=== PATIENT | male | born 1955 | race Hispanic/Latino ===

== ENCOUNTER 2018-04-30 21:13 | Emergency (ER) | payer MEDICARE ==
[2018-04-30] MEDS ORDERED: ZOFRAN IV ONE (21:39)
[2018-04-30] MEDS ORDERED: SUBLIMAZE IV ONE (21:39)
--- NOTE | 2018-04-30 21:43 | Emergency Department Report ---
HPI - General Chief Complaint: Abdominal Pain Time Seen by Provider: 04/30/18 21:27 - HPI HPI: The patient is a 62-year-old male with a history of chronic hepatitis C, and whom presents for evaluation of abdominal pain. The patient reports 1 month of on and off cramping abdominal pain, moderate in severity, exacerbated with dry heaving, and associated with nausea and multiple episodes of nonbilious, nonbloody emesis and dry heaving. He states he had a bowel movement last night and is able to pass flatus. The patient denies fever, chills, night sweats, diarrhea, blood in the stool, dark tarry stool, dysuria, hematuria, flank pain, genital discharge, inability to pass flatus. ED Past Medical Hx - Past Medical History Hx Hypertension: Yes Hx Heart Attack/AMI: Yes Additional medical history: Anxiety - Surgical History Additional Surgical History: c5-c7 fusion and repair l. eye - Social History Smoking Status: Current Every Day Smoker - Medications Home Medications: Home Medications Medication Instructions Recorded Confirmed Last Taken Type Duloxetine HCl [Cymbalta] 60 mg PO DAILY 06/17/15 06/17/15 06/17/15 History Lisinopril [Zestril TAB] 20 mg PO QDAY 06/17/15 06/17/15 06/17/15 History amLODIPine [Norvasc] 5 mg PO DAILY 06/17/15 06/17/15 06/17/15 History cloNIDine [Catapres] 0.1 mg PO QHS 06/17/15 06/17/15 06/16/15 History traZODone [Desyrel] 100 mg PO QHS 06/17/15 06/17/15 06/16/15 History Dicyclomine [Bentyl] 10 mg PO QID #20 capsule 05/01/18 Unknown Rx Omeprazole Magnesium [PriLOSEC Otc] 20 mg PO QDAY #14 tablet. 05/01/18 Unknown Rx Ondansetron [Zofran TAB] 4 mg PO Q8HR PRN #20 tablet 05/01/18 Unknown Rx ED Review of Systems ROS: Stated complaint: ABD PAIN Other details as noted in HPI Constitutional: denies: fever ENT: denies: throat or neck pain Respiratory: denies: cough, shortness of breath Cardiovascular: denies: chest pain Endocrine: denies unexplained weight loss or gain Gastrointestinal: reports abdominal pain, nausea Genitourinary: denies: dysuria Musculoskeletal: denies: leg swelling Skin: denies: rash Neurological: denies: headache Hematological/Lymphatic: denies: easy bleeding or easy bruising Psych: denies sadness or hopelessness Physical Exam - Physical Exam Physical Exam: General: well-nourished, well-developed, no acute distress Head: Normocephalic, atraumatic Eyes: normal sclera ENT: Mucous membranes are pink and moist Neck: trachea midline, neck supple, No neck stiffness, no cervical adenopathy Respiratory: Breath sounds equal bilaterally, no wheezing, rales, or rhonchi Cardio: S1 and S2 present, no murmurs, rubs, gallops, capillary refill is brisk Abdomen: Normoactive bowel sounds, soft abdomen, epigastric tenderness to palpation present, no rigidity, no guarding or rebound tenderness Chest WALL/Back: No tenderness to palpation of the chest wall, no CVA tenderness with percussion Musc: No pitting edema Skin: No rash Neuro: no facial drooping, normal speech Psych: Normal affect ED Medical Decision Making - Lab Data Result diagrams: 04/30/18 22:12 04/30/18 22:12 - Medical Decision Making The patient was seen and examined by myself. The patient is placed on a teletypesetter monitor and continuous pulse ox. On initial evaluation, the patient was found to be in no distress. Evaluation orders are placed. IV access is established and the patient is given 1 L normal saline fluid bolus and Zofran for nausea, and IV analgesic for pain Lab results were non-concerning including WBC, hemoglobin, hematocrit, electrolytes, renal function, LFTs, lipase, and urinalysis. The patient was reevaluated and reported that their symptoms were markedly improved. The patient is stable for discharge with outpatient follow-up. The patient is given follow-up and return instructions. The patient expressed understanding and agreed with the plan. The patient is discharged in stable condition. Critical care attestation.: If time is entered above; I have spent that time in minutes in the direct care of this critically ill patient, excluding procedure time. ED Disposition Clinical Impression: Acute generalized abdominal pain Disposition: TO HOME OR SELFCARE Is pt being admited?: No Does the pt Need Aspirin: No Condition: Stable Instructions: Acute Abdominal Pain (ED) Referrals: NICOLE PERES MD [Primary Care Provider] - 3-5 Days TOSHA GARCÍA MD [Staff Physician] - 3-5 Days Time of Disposition: 21:43
[2018-04-30 23:07] LABS: Hemoglobin 12.8 gm/dl (11.8-15.2); Mean Corpuscular HGB Conc 34 % (32-34); Mean Corpuscular Hemoglobin 33 pg (28-32); Mean Corpuscular Volume 98 fl (84-94); Platelet Count 108 K/mm3 (140-440); Red Blood Count 3.86 M/mm3 (3.65-5.03); Red Cell Distribution Width 13.2 % (13.2-15.2)
[2018-04-30 23:47] LABS: Alanine Aminotransferase 39 units/L (7-56); Albumin 3.9 g/dL (3.9-5); BUN/Creatinine Ratio 14; Blood Urea Nitrogen 10 mg/dL (9-20); Calcium 8.6 mg/dL (8.4-10.2); Hemolysis Index 6; Lipase 59 units/L (13-60)
[2018-05-01 00:01] VITALS: BP 113/83
[2018-05-01 00:30] LABS: Bilirubin,Urine NEG (Negative); Blood,Urine NEG (Negative); Calcium Oxalate Crystals,Urine FEW; Color,Urine Yellow (Yellow); Protein,Urine <15 mg/dL mg/dL (Negative); Urobilinogen,Urine < 2.0 mg/dL (<2.0)
[2018-05-01 00:39] LABS: Band Neutrophils # (Manual) 0.1 K/mm3; Basophils % (Manual) 0 % (0.0-1.8); Total Cells Counted 100
[2018-05-01 00:40] LABS: Platelet Estimate Consistent w Auto; RBC Morphology Normal
== END 2018-05-01 02:25 | disposition home or self-care (01) ==
LOC: ED 21:13
DX: R10.84 Generalized abdominal pain (principal); I11.0 Hypertensive heart disease with heart failure; F41.9 Anxiety disorder, unspecified; F17.200 Nicotine dependence, unspecified, uncomplicated
CPT/HCPCS: 36415; 80053; 81001; 83690; 83880; 85007; 85025; 96374; 96375; 99284; J2405; J3010

== ENCOUNTER 2018-05-17 20:40 | Emergency (ER) | payer MEDICARE ==
[2018-05-17] MEDS ORDERED: NACL 0.9% 1000 ML 1,000 ML IV ONE (21:35)
[2018-05-17 21:50] LABS: Basophils % (Auto) 0.3 % (0.0-1.8); Eosinophils # (Auto) 0.2 K/mm3 (0.0-0.4); Eosinophils % (Auto) 2.8 % (0.0-4.3); Hematocrit 44.5 % (35.5-45.6); Hemoglobin 15.1 gm/dl (11.8-15.2); Lymphocytes # (Auto) 2.6 K/mm3 (1.2-5.4); Lymphocytes % (Auto) 33.6 % (13.4-35.0); Mean Corpuscular HGB Conc 34 % (32-34); Mean Corpuscular Hemoglobin 32 pg (28-32); Mean Corpuscular Volume 96 fl (84-94); Monocytes # (Auto) 0.8 K/mm3 (0.0-0.8); Monocytes % (Auto) 10.2 % (0.0-7.3); Platelet Count 181 K/mm3 (140-440); Red Blood Count 4.66 M/mm3 (3.65-5.03); Red Cell Distribution Width 13.2 % (13.2-15.2)
[2018-05-17 22:19] LABS: Alanine Aminotransferase 32 units/L (7-56); Albumin 3.9 g/dL (3.9-5); BUN/Creatinine Ratio 10; Blood Urea Nitrogen 8 mg/dL (9-20); Calcium 9.6 mg/dL (8.4-10.2); Hemolysis Index 11
--- NOTE | 2018-05-17 23:59 | Emergency Department Report ---
ED Abdominal Pain HPI - General Chief Complaint: Abdominal Pain Stated Complaint: BACK AND HIP PAIN Time Seen by Provider: 05/17/18 22:26 Source: patient Mode of arrival: Ambulatory Limitations: No Limitations - History of Present Illness Initial Comments: 2 weeks of constant bilateral lower abd pain. Nauseous, but no vomiting. No h/ o abd surgeries. Denies urinary complaints. Afebrile. Feels like it might be his pancreatitis. - Related Data Home Medications Medication Instructions Recorded Confirmed Last Taken Duloxetine HCl [Cymbalta] 60 mg PO DAILY 06/17/15 06/17/15 06/17/15 Lisinopril [Zestril TAB] 20 mg PO QDAY 06/17/15 06/17/15 06/17/15 amLODIPine [Norvasc] 5 mg PO DAILY 06/17/15 06/17/15 06/17/15 cloNIDine [Catapres] 0.1 mg PO QHS 06/17/15 06/17/15 06/16/15 traZODone [Desyrel] 100 mg PO QHS 06/17/15 06/17/15 06/16/15 Previous Rx's Medication Instructions Recorded Last Taken Type Dicyclomine [Bentyl] 10 mg PO QID #20 capsule 05/01/18 Unknown Rx Omeprazole Magnesium [PriLOSEC Otc] 20 mg PO QDAY #14 tablet. 05/01/18 Unknown Rx Ondansetron [Zofran TAB] 4 mg PO Q8HR PRN #20 tablet 05/01/18 Unknown Rx Allergies Allergy/AdvReac Type Severity Reaction Status Date / Time No Known Allergies Allergy Verified 04/30/18 22:15 ED Review of Systems ROS: Stated complaint: BACK AND HIP PAIN Other details as noted in HPI Comment: All other systems reviewed and negative Gastrointestinal: abdominal pain, nausea ED Past Medical Hx - Past Medical History Previous Medical History?: Yes Hx Hypertension: Yes Hx Heart Attack/AMI: Yes Additional medical history: Anxiety - Surgical History Past Surgical History?: Yes Additional Surgical History: c5-c7 fusion and repair l. eye - Social History Smoking Status: Current Every Day Smoker Substance Use Type: Alcohol - Medications Home Medications: Home Medications Medication Instructions Recorded Confirmed Last Taken Type Duloxetine HCl [Cymbalta] 60 mg PO DAILY 06/17/15 06/17/15 06/17/15 History Lisinopril [Zestril TAB] 20 mg PO QDAY 06/17/15 06/17/15 06/17/15 History amLODIPine [Norvasc] 5 mg PO DAILY 06/17/15 06/17/15 06/17/15 History cloNIDine [Catapres] 0.1 mg PO QHS 06/17/15 06/17/15 06/16/15 History traZODone [Desyrel] 100 mg PO QHS 06/17/15 06/17/15 06/16/15 History Dicyclomine [Bentyl] 10 mg PO QID #20 capsule 05/01/18 Unknown Rx Omeprazole Magnesium [PriLOSEC Otc] 20 mg PO QDAY #14 tablet. 05/01/18 Unknown Rx Ondansetron [Zofran TAB] 4 mg PO Q8HR PRN #20 tablet 05/01/18 Unknown Rx ED Physical Exam - General Limitations: No Limitations General appearance: in no apparent distress, appears intoxicated - Head Head exam: Present: atraumatic, normocephalic - Eye Eye exam: Present: normal appearance, PERRL, EOMI - ENT ENT exam: Present: mucous membranes moist - Neck Neck exam: Present: normal inspection - Respiratory Respiratory exam: Present: normal lung sounds bilaterally. Absent: respiratory distress - Cardiovascular Cardiovascular Exam: Present: regular rate, normal rhythm. Absent: systolic murmur, diastolic murmur, rubs, gallop - GI/Abdominal GI/Abdominal exam: Present: soft, normal bowel sounds. Absent: distended, tenderness, guarding, rebound - Rectal Rectal exam: Present: deferred - Extremities Exam Extremities exam: Present: normal inspection - Back Exam Back exam: Present: normal inspection - Neurological Exam Neurological exam: Present: altered (intoxicated), oriented X3 - Psychiatric Psychiatric exam: Present: normal affect, normal mood - Skin Skin exam: Present: warm, dry, intact, normal color. Absent: rash ED Course Vital Signs 05/17/18 05/18/18 20:50 02:32 Temperature 97.7 F 98.1 F Pulse Rate 78 76 Respiratory 18 18 Rate Blood Pressure 167/110 Blood Pressure 131/86 [Right] O2 Sat by Pulse 98 99 Oximetry ED Medical Decision Making - Lab Data Result diagrams: 05/17/18 21:38 05/17/18 21:38 - Radiology Data Radiology results: report reviewed - Medical Decision Making 62 yo male with pmhx HTN that p/w abd pain. VS significant for HTN that improved without intervention. Labs and CT are unremarkable for acute pathology. Pt has slept the entire visit in the ER. Hasn't required anything for pain. Pt has urinated multiple times, but has never saved a sample. Low suspicion for acute pathology given benign physical exam. Pt is cleared for dc. - Differential Diagnosis alcohol intoxication, pancreatitis, sbo, uti, diverticulitis, cholecystitis Critical care attestation.: If time is entered above; I have spent that time in minutes in the direct care of this critically ill patient, excluding procedure time. ED Disposition Clinical Impression: Abdominal pain Disposition: DC-01 TO HOME OR SELFCARE Is pt being admited?: No Does the pt Need Aspirin: No Condition: Stable Instructions: Abdominal Pain (ED) Additional Instructions: follow up with your family doctor for further management of your abdominal pain. Referrals: PRIMARY CARE, [Primary Care Provider] - 3-5 Days
--- NOTE | 2018-05-18 00:15 | Cat Scan Report ---
FINAL REPORT PROCEDURE: CT ABDOMEN PELVIS W CON TECHNIQUE: Computerized axial tomography of the abdomen and pelvis was performed after the IV injection of iodinated nonionic contrast. HISTORY: Rt flank abd pain COMPARISON: No prior studies are available for comparison. FINDINGS: Visualized lower thorax: Atelectasis both lower lungs.. Liver: Normal size and attenuation. Spleen: Normal size and attenuation. Gallbladder and biliary system: Normal. Pancreas: Normal. Adrenals: Normal. Kidneys: Normal. GI tract: No evidence of intestinal obstruction. No ileus or enteritis. The cecum, appendix and colon are normal.. Lymph nodes and mesentery: Normal. Vasculature: Normal. Bladder: Normal. Reproductive organs: Normal. Peritoneum: No free fluid. Musculoskeletal structures: Mild degenerative changes of the spine are noted. No acute osseous abnormality.. Other: None. IMPRESSION: There is no evidence of intestinal or urinary tract obstruction. Ileus or enteritis. The appendix is normal. Mild atelectasis both lower lungs.
[2018-05-18 06:49] VITALS: BP 165/84
== END 2018-05-18 06:47 | disposition home or self-care (01) ==
LOC: ED 20:40
DX: R10.31 Right lower quadrant pain (principal); R10.32 Left lower quadrant pain; R11.0 Nausea; I10 Essential (primary) hypertension; I25.2 Old myocardial infarction; F17.200 Nicotine dependence, unspecified, uncomplicated
CPT/HCPCS: 36415; 74177; 80053; 83690; 85025; 99284; G0480; Q9967; 80320

== ENCOUNTER 2018-05-18 07:53 | Emergency (ER) | payer MEDICARE ==
--- NOTE | 2018-05-18 08:36 | Emergency Department Report ---
ED Back Pain/Injury HPI - General Chief Complaint: Back Pain/Injury Stated Complaint: CANT WALK/PAIN Time Seen by Provider: 05/18/18 08:07 Source: patient, family Limitations: No Limitations - History of Present Illness Initial Comments: This is a 62-year-old male presents to emergency room with right lower back pain that radiates down his right leg. He said this is been going on for 2 days. Patient was here on 05/17/2018 which was yesterday and he had a CT scan of the abdomen and pelvis with IV contrast and he said he does not know why they did a CT scan of his abdomen when he complained of back pain. I discussed with him that the CT scan was negative and also shows that his lumbar spine and she said he has arthritis has mild degeneration but there are no fracture or subluxation. He reports that he was discharged home and they did not address his back. He was treated in emergency room by Dr. Mcgrath and sent home with instruction to follow-up and abdominal pain. He had lab work done to include CBC, chemistry and lipase which were all within normal limits. MD Complaint: back pain Onset/Timin -: days(s) Similar Symptoms Previously: Yes Place: home Radiation: buttocks, right leg Severity: severe Severity scale (0 -10): 10 Quality: aching Consistency: constant Improves With: none Worsens With: movement, walking Context: unknown, other (patient reports that he has arthritis in the spine) Associated Symptoms: denies: confusion, weakness, chest pain, numbness, difficulty walking, cough, difficulty urinating, diaphoresis, incontinence, fever/chills, constipation, headaches, abdominal pain, loss of appetite, nausea/ vomiting, rash, seizure, shortness of breath, syncope Treatments Prior to Arrival: NSAIDS - Related Data Home Medications Medication Instructions Recorded Confirmed Last Taken Duloxetine HCl [Cymbalta] 60 mg PO DAILY 06/17/15 06/17/15 06/17/15 Lisinopril [Zestril TAB] 20 mg PO QDAY 06/17/15 06/17/15 06/17/15 amLODIPine [Norvasc] 5 mg PO DAILY 06/17/15 06/17/15 06/17/15 cloNIDine [Catapres] 0.1 mg PO QHS 09/01/15 09/01/15 08/31/15 traZODone [Desyrel] 100 mg PO QHS 06/17/15 06/17/15 06/16/15 Previous Rx's Medication Instructions Recorded Last Taken Type Dicyclomine [Bentyl] 10 mg PO QID #20 capsule 05/01/18 Unknown Rx Omeprazole Magnesium [PriLOSEC Otc] 20 mg PO QDAY #14 tablet. 05/01/18 Unknown Rx Ondansetron [Zofran TAB] 4 mg PO Q8HR PRN #20 tablet 05/01/18 Unknown Rx Ibuprofen [Motrin] 600 mg PO Q8H PRN #12 tablet 05/18/18 Unknown Rx traMADol [Ultram 50 MG tab] 50 mg PO Q6HR PRN #20 tablet 05/18/18 Unknown Rx Allergies Allergy/AdvReac Type Severity Reaction Status Date / Time No Known Allergies Allergy Verified 04/30/18 22:15 ED Review of Systems ROS: Stated complaint: CANT WALK/PAIN Other details as noted in HPI Constitutional: denies: chills, fever Eyes: denies: eye pain, eye discharge, vision change ENT: denies: ear pain, throat pain Respiratory: denies: cough, shortness of breath, SOB with exertion, SOB at rest , stridor, wheezing Cardiovascular: denies: chest pain, palpitations, edema, syncope Gastrointestinal: denies: abdominal pain, nausea, vomiting, diarrhea, constipation Genitourinary: denies: urgency, dysuria Musculoskeletal: back pain, arthralgia. denies: joint swelling Skin: denies: rash, lesions Neurological: denies: headache, weakness, paresthesias ED Past Medical Hx - Past Medical History Medical history: arthritis, hypertension Anxiety. Chronic lower back pain. Hepatitis C Surgical history: other (fusion of C5 to C7.) Psychiatric history: anxiety Family history: hypertension - Social History Smoking Status: Former Smoker Alcohol use: none Drug use: none ED Back Pain Physical Exam - Exam General: Vital signs noted. No distress. Alert and acting appropriately. This is a 62-year-old male who reports lower back pain without radiation to his right lower extremity. Patient is alert and oriented. Well-nourished well- developed in no acute distress. Back/Abdomen: No Abdominal Tenderness (NTTP), No Perithoracic Tenderness, No Perilumbar Tenderness, No Sacroiliac Tenderness, No Flank Tenderness, No Straight Leg Raise Pain Neuro: Yes Normal Sensation (he has good color, sensation, movement and temperatures to her extremities.), Yes Motor Weakness (strength in all extremities), Yes Normal DTR's (+2 reflexes), Yes Normal Gait (ambulates without any difficulties) ED Course Vital Signs 05/18/18 08:02 Temperature 98 F Pulse Rate 88 Respiratory 18 Rate Blood Pressure 172/100 O2 Sat by Pulse 99 Oximetry Vital Signs 05/18/18 05/18/18 05/18/18 08:02 09:29 09:30 Temperature 98 F Pulse Rate 88 Respiratory 18 20 20 Rate Blood Pressure 172/100 Blood Pressure [Left] O2 Sat by Pulse 99 Oximetry 05/18/18 10:01 Temperature Pulse Rate Respiratory Rate Blood Pressure Blood Pressure 164/90 [Left] O2 Sat by Pulse Oximetry - Reevaluation(s) Reevaluation #1: 05/18/18 10:02 Patient received [place] 2 tablets in the emergency room along with Toradol 30 mg IM and Decadron 10 mg IM which relieved his pain down to 2 out of 10. Ed Back Pain Tests - Tests Tests: Abnormal X Rays (CT scan of the abdomen and pelvis with IV contrast which is then yesterday when he was here showed that he has degenerative disc disease in his spine otherwise normal) ED Medical Decision Making - Lab Data Patient has CBC, CMP and lipase and troponin done which were all stable. He was seen by attending physician 05/17/2018 and was diagnosed with abdominal pain. - Radiology Data Radiology results: report reviewed CT scan of the abdomen and pelvis with IV contrast was done on 05/17/2018 and was dictated by radiologist's report reviewed by myself and patient was no evidence of intestinal or ileus, enteritis. The cecum, appendix and colon are normal. Musculoskeletal structure mild degeneration. Please see detailed report below. Patient: MIKE EARLY MR#: [id number] : 1955 Acct:[id number] Age/Sex: 62 / M ADM Date: 05/17/18 Loc: ED Attending Dr: Ordering Physician: ALEXANDRE MCGRATH MD Date of Service: 05/17/18 Procedure(s): CT abdomen pelvis w con Accession Number(s): [id number] cc: ALEXANDRE MCGRATH MD FINAL REPORT PROCEDURE: CT ABDOMEN PELVIS W CON TECHNIQUE: Computerized axial tomography of the abdomen and pelvis was performed after the IV injection of iodinated nonionic contrast. HISTORY: Rt flank abd pain COMPARISON: No prior studies are available for comparison. FINDINGS: Visualized lower thorax: Atelectasis both lower lungs.. Liver: Normal size and attenuation. Spleen: Normal size and attenuation. Gallbladder and biliary system: Normal. Pancreas: Normal. Adrenals: Normal. Kidneys: Normal. GI tract: No evidence of intestinal obstruction. No ileus or enteritis. The cecum, appendix and colon are normal.. Lymph nodes and mesentery: Normal. Vasculature: Normal. Bladder: Normal. Reproductive organs: Normal. Peritoneum: No free fluid. Musculoskeletal structures: Mild degenerative changes of the spine are noted. No acute osseous abnormality.. Other: None. IMPRESSION: There is no evidence of intestinal or urinary tract obstruction. Ileus or enteritis. The appendix is normal. Mild atelectasis both lower lungs. Transcribed By: [facility] Dictated By: ABY ÁLVAREZ MD Electronically Authenticated By: ABY ÁLVAREZ MD Signed Date/Time: 05/18/187 DD/ TD/TT: 05/18/187 - Medical Decision Making This is a 62-year-old male patient here with lower back pain which is chronic and he is having radiation of pain to his right lower extremity. Patient does not have a primary care physician or orthopedic doctor. But he does have access to primary care. He is requesting in referral. Patient was here yesterday and treated for abdominal pain although he said that he was not here for abdominal pain he was here for back pain. He had a CT scan which showed normal findings and also chronic changes of arthritis to his lumbar spine. Patient was seen and examined by myself and he started to have lumbar radiculopathy. He has normal neurological and back exam. Extremities are normal without any clubbing, cyanosis or edema. He has +2 pedal pulses and full range of motion to all extremities without any joint deformities. Patient was given [place] for pain, Decadron 4 im radiculopathy and Toradol im in the emergency room which relieved this pain. I told him I will refer him to orthopedic to manage his chronic pain. Right lumbar radiculopathy-patient was given [place] 7.5/325 mg po 2 tablets , toradol 30 mg im and Decadron 10 mg im in emergency room which relieved this pain. Chronic lower back pain-pain is better and he will be referred to primary care and orthopedic doctor - Differential Diagnosis fracture, subluxation, musculoskeletal pain Critical care attestation.: If time is entered above; I have spent that time in minutes in the direct care of this critically ill patient, excluding procedure time. ED Disposition Clinical Impression: Back pain Qualifiers: Back pain location: low back pain Chronicity: unspecified Back pain laterality : right Sciatica presence: with sciatica Sciatica laterality: sciatica of right side Qualified Code(s): M54.41 - Lumbago with sciatica, right side Disposition: TO HOME OR SELFCARE Is pt being admited?: No Does the pt Need Aspirin: No Condition: Stable Instructions: Lumbar Radiculopathy (ED), Core Strengthening Exercises (GEN), Chronic Back Pain (ED) Additional Instructions: Take Motrin for mild to moderate pain and Ultram for severe pain but please do not drive or operate heavy machinery while taking Ultram as this medication causes drowsiness. Please see referral to Dr. Edwards was primary care and Dr. Childers who is orthopedic doctor Referrals: OSMEL EDWARDS MD [Staff Physician] - 2-3 Days HEATH CHILDERS MD [Staff Physician] - 2-3 Days Forms: Work/School Release Form(ED)
[2018-05-18] MEDS ORDERED: NORCO 7.5/325 PO ONE (08:45)
[2018-05-18] MEDS ORDERED: TORADOL IM ONE (08:45)
[2018-05-18] MEDS ORDERED: DECADRON IM ONE (08:45)
[2018-05-18 10:02] VITALS: BP 164/90
== END 2018-05-18 10:24 | disposition home or self-care (01) ==
LOC: ED 07:53
DX: M54.41 Lumbago with sciatica, right side (principal); I10 Essential (primary) hypertension; M19.90 Unspecified osteoarthritis, unspecified site; F41.9 Anxiety disorder, unspecified; Z87.891 Personal history of nicotine dependence; Z86.2 Personal history of diseases of the blood and blood-forming organs and certain disorders involving the immune mechanism
CPT/HCPCS: 96372; 99282; J1100; J1885

== ENCOUNTER 2020-01-06 22:58 | Emergency (ER) | payer MEDICARE ==
--- NOTE | 2020-01-07 02:10 | Emergency Department Report ---
ED Medical Clearance HPI - General Chief complaint: Medical Clearance Stated complaint: VALIUM OD Time Seen by Provider: 01/07/20 01:46 Source: EMS Mode of arrival: Stretcher - History of Present Illness Initial comments: Patient is 64 years old male with history of hypertension, chronic alcoholism and chronic back pain. Patient presented to the ER requesting a medical clearan ce and to be admitted to rehab facility for alcohol detoxification. Patient also stated that he took approximately 20 tablets of 5 milligrams of Valium yesterday to help with his chronic pain. Patient denied any suicidal attempt or suicidal ideation. He stated that the last Valium he took around 2 PM yesterday. Patient is alert, oriented x3 no acute distress and answering question appropriately. He also denied any auditory or visual hallucination. No homicidal ideation. MD Complaint: medical clearance request Reason for Medical Clearance: psychiatric condition Traumatic Symptoms: denies traumatic injury Home medications: Home Medications Medication Instructions Recorded Confirmed Last Taken Duloxetine HCl [Cymbalta] 60 mg PO DAILY 06/17/15 06/17/15 06/17/15 amLODIPine [Norvasc] 5 mg PO DAILY 06/17/15 06/17/15 06/17/15 cloNIDine [Catapres] 0.1 mg PO QHS 06/17/15 06/17/15 06/16/15 lisinopriL [Zestril TAB] 20 mg PO QDAY 06/17/15 06/17/15 06/17/15 traZODone [Desyrel] 100 mg PO QHS 06/17/15 06/17/15 06/16/15 Previous Rx's Medication Instructions Recorded Last Taken Type Dicyclomine [Bentyl] 10 mg PO QID #20 capsule 05/01/18 Unknown Rx Omeprazole Magnesium [PriLOSEC Otc] 20 mg PO QDAY #14 tablet. 05/01/18 Unknown Rx Ondansetron [Zofran TAB] 4 mg PO Q8HR PRN #20 tablet 05/01/18 Unknown Rx Ibuprofen [Motrin] 600 mg PO Q8H PRN #12 tablet 05/18/18 Unknown Rx traMADoL [Ultram 50 MG tab] 50 mg PO Q6HR PRN #20 tablet 05/18/18 Unknown Rx Allergies/Adverse reactions: Allergies Allergy/AdvReac Type Severity Reaction Status Date / Time No Known Allergies Allergy Verified 04/30/18 22:15 ED Review of Systems ROS: Stated complaint: VALIUM OD Other details as noted in HPI Comment: All other systems reviewed and negative Constitutional: denies: chills, fever Respiratory: denies: cough, shortness of breath, SOB with exertion Cardiovascular: denies: chest pain, palpitations Gastrointestinal: denies: abdominal pain, nausea, vomiting Musculoskeletal: denies: back pain ED Past Medical Hx - Past Medical History Previous Medical History?: Yes Hx Hypertension: Yes Hx Heart Attack/AMI: Yes Hx Psychiatric Treatment: Yes Additional medical history: Anxiety. Chronic lower back pain. Hepatitis C - Surgical History Past Surgical History?: Yes Additional Surgical History: c5-c7 fusion and repair l. eye - Social History Smoking Status: Never Smoker Substance Use Type: Alcohol, Non Opiate Pain - Medications Home Medications: Home Medications Medication Instructions Recorded Confirmed Last Taken Type Duloxetine HCl [Cymbalta] 60 mg PO DAILY 06/17/15 06/17/15 06/17/15 History amLODIPine [Norvasc] 5 mg PO DAILY 06/17/15 06/17/15 06/17/15 History cloNIDine [Catapres] 0.1 mg PO QHS 06/17/15 06/17/15 06/16/15 History lisinopriL [Zestril TAB] 20 mg PO QDAY 06/17/15 06/17/15 06/17/15 History traZODone [Desyrel] 100 mg PO QHS 06/17/15 06/17/15 06/16/15 History Dicyclomine [Bentyl] 10 mg PO QID #20 capsule 05/01/18 Unknown Rx Omeprazole Magnesium [PriLOSEC Otc] 20 mg PO QDAY #14 tablet. 05/01/18 Unknown Rx Ondansetron [Zofran TAB] 4 mg PO Q8HR PRN #20 tablet 05/01/18 Unknown Rx Ibuprofen [Motrin] 600 mg PO Q8H PRN #12 tablet 05/18/18 Unknown Rx traMADoL [Ultram 50 MG tab] 50 mg PO Q6HR PRN #20 tablet 05/18/18 Unknown Rx ED Physical Exam - General Limitations: No Limitations General appearance: alert, in no apparent distress - Head Head exam: Present: atraumatic, normocephalic, normal inspection - Eye Eye exam: Present: normal appearance - ENT ENT exam: Present: normal exam, normal orophraynx, mucous membranes moist - Neck Neck exam: Present: normal inspection, full ROM. Absent: tenderness, meningismus, lymphadenopathy, thyromegaly - Respiratory Respiratory exam: Present: normal lung sounds bilaterally - Cardiovascular Cardiovascular Exam: Present: regular rate, normal rhythm, normal heart sounds - GI/Abdominal GI/Abdominal exam: Present: soft, normal bowel sounds. Absent: distended, tenderness, guarding, rebound, rigid, organomegaly, mass, bruit, pulsatile mass, hernia - Extremities Exam Extremities exam: Present: normal inspection, full ROM, normal capillary refill. Absent: tenderness, pedal edema, calf tenderness - Back Exam Back exam: Present: normal inspection, full ROM. Absent: tenderness, CVA tenderness (L), muscle spasm, paraspinal tenderness - Neurological Exam Neurological exam: Present: alert, oriented X3, CN II-XII intact, reflexes normal. Absent: motor sensory deficit - Psychiatric Psychiatric exam: Present: normal mood. Absent: agitated, anxious, flat affect, manic, homicidal ideation, suicidal ideation - Skin Skin exam: Present: warm, intact, normal color ED Course Vital Signs 01/07/20 02:05 Temperature 97.6 F Pulse Rate 79 Respiratory 16 Rate Blood Pressure 153/79 [left arm] O2 Sat by Pulse 98 Oximetry ED Medical Decision Making - Lab Data Result diagrams: 01/07/20 01:59 01/07/20 01:59 - Medical Decision Making Patient is 64 years old male with history of hypertension, chronic alcoholism and chronic back pain. Patient presented to the ER requesting a medical clearance and to be admitted to rehab facility for alcohol detoxification. Patient also stated that he took approximately 20 tablets of 5 milligrams of Valium yesterday to help with his chronic pain. Patient denied any suicidal attempt or suicidal ideation. He stated that the last Valium he took around 2 PM yesterday. Patient is alert, oriented x3 no acute distress and answering question appropriately. He also denied any auditory or visual hallucination. No homicidal ideation. Patient remained stable in the ER. Labs reviewed and is unremarkable. Poison control contacted and advised symptomatic treatment. Patient is medically clear for inpatient psychiatric admission. ED Disposition Clinical Impression: Accidental drug overdose, Alcohol abuse Disposition: TO HOME OR SELFCARE Is pt being admited?: No Condition: Stable Instructions: Abuse of Alcohol (ED), Medical Clearance for Substance Abuse Treatment (ED) Additional Instructions: Patient is medically clear to be admitted to a psychiatric facility. Referrals: CRISTOBAL MORALES MD [Primary Care Provider] - 3-5 Days
[2020-01-07 02:32] LABS: Basophils % (Auto) 0.2 % (0.0-1.8); Eosinophils # (Auto) 0.1 K/mm3 (0.0-0.4); Eosinophils % (Auto) 0.9 % (0.0-4.3); Hematocrit 41.4 % (35.5-45.6); Hemoglobin 13.8 gm/dl (11.8-15.2); Lymphocytes # (Auto) 2.9 K/mm3 (1.2-5.4); Lymphocytes % (Auto) 42.8 % (13.4-35.0); Mean Corpuscular HGB Conc 33 % (32-34); Mean Corpuscular Volume 93 fl (84-94); Monocytes # (Auto) 0.9 K/mm3 (0.0-0.8); Monocytes % (Auto) 12.9 % (0.0-7.3); Platelet Count 125 K/mm3 (140-440); Red Blood Count 4.44 M/mm3 (3.65-5.03); Red Cell Distribution Width 16.8 % (13.2-15.2)
[2020-01-07 02:47] LABS: Albumin 3.8 g/dL (3.9-5); BUN/Creatinine Ratio 9; Blood Urea Nitrogen 6 mg/dL (9-20); Calcium 9.3 mg/dL (8.4-10.2); Hemolysis Index 133
[2020-01-07 03:01] LABS: Bilirubin,Direct < 0.2 mg/dL (0-0.2)
[2020-01-07 03:20] LABS: Alanine Aminotransferase 104 units/L (7-56)
[2020-01-07 04:24] LABS: Bilirubin,Urine NEG (Negative); Blood,Urine NEG (Negative); Color,Urine Yellow (Yellow); Mucus,Urine FEW /HPF; Protein,Urine <15 mg/dL mg/dL (Negative); Urobilinogen,Urine < 2.0 mg/dL (<2.0)
[2020-01-07 04:30] LABS: Amphetamine Screen,Urine PRESUMPTIVE NEGATIVE; Cannabinoid Screen,Urine PRESUMPTIVE NEGATIVE; Cocaine Screen,Urine PRESUMPTIVE NEGATIVE; Methadone Screen,Urine PRESUMPTIVE NEGATIVE; Opiate Screen,Urine PRESUMPTIVE NEGATIVE
[2020-01-07 05:24] LABS: Benzodiazepines Screen,Urine PRESUMPTIVE POSITIVE
[2020-01-07] MEDS ORDERED: LISINOPRIL 20 MG TAB PO ONE (12:45)
[2020-01-07] MEDS ORDERED: amLODIPine 5 MG TAB PO ONE (12:45)
[2020-01-07 14:29] VITALS: BP 175/98
== END 2020-01-07 14:31 | disposition home or self-care (01) ==
LOC: ED 22:58
DX: T42.4X1A Poisoning by benzodiazepines, accidental (unintentional), initial encounter (principal); G89.29 Other chronic pain; M54.5 Low back pain; F10.10 Alcohol abuse, uncomplicated; I21.9 Acute myocardial infarction, unspecified; I10 Essential (primary) hypertension; Y92.89 Other specified places as the place of occurrence of the external cause
CPT/HCPCS: 36415; 80048; 80076; 80307; 80320; 81001; 83690; 85025; 87086; 99284; G0480